=== PATIENT | female | born 1945 | race Hispanic/Latino ===

== ENCOUNTER 2020-05-17 19:15 | Emergency (ER) | payer MEDICARE ==
[2020-05-17] MEDS ORDERED: MORPHINE SULFATE 2 MG/ML 1ML SYG ONE (20:23)
[2020-05-17] MEDS ORDERED: TETANUS/DIPHTHERIA TOXOID [ADULT] 0.5 ML VIAL IM ONE (20:24)
[2020-05-17] MEDS ORDERED: FENTANYL CITRATE PF 50 MCG/1 ML 2ML VIAL ONE (21:46)
[2020-05-17] MEDS ORDERED: FAMOTIDINE/PF 20 MG/2 ML VIAL IV ONE (21:46)
== END 2020-05-17 23:42 | disposition home or self-care (01) ==
LOC: EDH 19:15 → EDBD 19:15 → EDH 23:42
DX: S76.011A Strain of muscle, fascia and tendon of right hip, initial encounter (principal); S00.01XA Abrasion of scalp, initial encounter; M54.2 Cervicalgia; M54.9 Dorsalgia, unspecified; M25.561 Pain in right knee; I10 Essential (primary) hypertension; E11.9 Type 2 diabetes mellitus without complications; Z90.49 Acquired absence of other specified parts of digestive tract; Z98.890 Other specified postprocedural states; Z90.5 Acquired absence of kidney; W01.0XXA Fall on same level from slipping, tripping and stumbling without subsequent striking against object, initial encounter; Y93.01 Activity, walking, marching and hiking; Y92.89 Other specified places as the place of occurrence of the external cause; Y99.8 Other external cause status
CPT/HCPCS: 70450; 72125; 72192; 73562; 90471; 90714; 96374; 96375; 99285; J3010; J3490

== ENCOUNTER 2020-08-24 12:49 | Emergency (ER) | payer MEDICARE ==
[2020-08-24] MEDS ORDERED: FENTANYL CITRATE PF 50 MCG/1 ML 2ML VIAL ONE (13:46)
[2020-08-24] MEDS ORDERED: FAMOTIDINE 20MG TAB 20 MG TAB ONE (13:46)
== END 2020-08-24 14:08 | disposition home or self-care (01) ==
LOC: EDH 12:49
DX: B02.8 Zoster with other complications (principal); I10 Essential (primary) hypertension; E11.9 Type 2 diabetes mellitus without complications; Z90.49 Acquired absence of other specified parts of digestive tract
CPT/HCPCS: 96374; 99283; J3010